=== PATIENT | female | born 1960 | race Caucasian/White ===

== ENCOUNTER 2019-03-24 11:55 | Day surgery (SDC) | payer BC ==
[~2019-03-24] VITALS: Ht 162.6 cm; Wt 76.0 kg
[2019-03-24 13:27] VITALS: Ht 162.6 cm; Wt 76.0 kg
[2019-03-24 13:40] VITALS: BP 170/91; PULSE 94; RESP 16
--- NOTE | 2019-03-24 13:59 | PREAC ---
Date/Time of Note Date/Time of Note DATE: 03/24/19 TIME: 13:53 Anesthesia Eval and Record Evaluation Time Pre-Procedure Interview DATE: 03/24/19 TIME: 13:53 Age 58 Sex female NPO: 8 hrs (SIP [id number] AT [id number] WITH CLONIDINE) Preoperative diagnosis GERD, HX LOWER GI BLEED Planned procedure EGD, COLONOSCOPY Past Medical History Past Medical History: Includes Cardio: HTN, Dyslipidemia, Arrythmia (HX TACHYCARDIA WHEN ANXIOUS), Other Pulm: Asthma (SYMPTOMS TRIGGERED BY URI, CHANGES IN WEATHER. USES RESCUE IN HAL[place] 2-3 TIMES A WEEK.) Hepatic: Other (FATTY LIVER) GI: GERD, Other (HX ULCERATIVE COLITIS, DIVERTICULOSIS, HEMORRHOIDS) Heme: Other (LUPUS NEW DIAGNOSIS, PRE EXISTING REDNESS ON FACE AND CHEST) Psych: Anxiety (TAKES CLONAZEPAM TO PREVENT PANIC ATTACKS) Surgery & Anesthesia Issues No known issue Meds Anticoagulation: No Beta Poonam within 24 hr: Yes Meds reviewed: Yes Allergies Allergies Reviewed: Yes (LATEX, EKG LEADS, DEMEROL) Labs/Studies Labs Reviewed: Other (N/A) test: N/A Pre-procedure Exam Airway: Adequate mouth opening, Adequate thyromental dist Mallampati: Mallampati II Teeth: Normal Lung: Normal Heart: Normal ASA Physical Status ASA physical status: 3 Emergency: None Planned Anesthetic General/MAC: Mask, MAC Planned Pain Management Parenteral pain med, Local by surgeon Pre-operative Attestations Prior to commencing anesthesia and surgery, the patient was re-evaluated, there was verification of: *The patient's identity *The results of appropriate recent lab work and preoperative vital signs *The above evaluation not changing prior to induction *Anesthetic plan, risk benefits, alternative and complications discussed with patient/family; questions answered; patient/family understands, accepts and wishes to proceed. JU CORDON Mar 24, 2019 13:58
[2019-03-24] MEDS ORDERED: CLONAZEPAM PO (15:01)
[2019-03-24] MEDS ORDERED: BYSTOLIC PO (15:01)
[2019-03-24] MEDS ORDERED: CLONIDINE PO (15:01)
[2019-03-24] MEDS ORDERED: benadryl (15:01)
[2019-03-24] MEDS ORDERED: [UNRECOGNIZED DRUG - REMARK] (15:01)
[2019-03-24] MEDS ORDERED: ZOFRAN (15:01)
[2019-03-24] MEDS ORDERED: PROPOFOL 20 ML ONE ×2 (15:24→16:09)
[2019-03-24] MEDS ORDERED: FENTAnyl 50 MCG/ML VIAL ONE (15:24)
[2019-03-24 16:35] VITALS: BP 87/52; PULSE 66; RESP 17
--- NOTE | 2019-03-25 09:21 | PAC ---
Date/Time of Note Date/Time of Note DATE: 03/25/19 TIME: 09:20 Post-Anesthesia Notes Post-Anesthesia Note Last documented vital signs Vital Signs Date Temp Pulse Resp B/P (MAP) Pulse Ox O2 O2 Flow FiO2 Time Delivery Rate 03/24/19 98.6 66 17 87/52 (64) 96 Room Air 16:35 Activity: WNL Respiratory function: WNL Cardiovascular function: WNL Mental status: Baseline Pain reasonably controlled: Yes Hydration appropriate: Yes Nausea/Vomiting absent: No CELY NOLEN MD Mar 25, 2019 09:20
== END 2019-03-24 17:09 | disposition home or self-care (01) ==
LOC: GIL 11:55
PROVIDERS: ATTEND Internal Medicine Gastroenterology
DX: K64.8 Other hemorrhoids (principal); K29.50 Unspecified chronic gastritis without bleeding; I10 Essential (primary) hypertension; E78.5 Hyperlipidemia, unspecified; J45.909 Unspecified asthma, uncomplicated
CPT/HCPCS: 43239; 45380; 88305; 88312; J3010; Z7610